=== PATIENT | female | born 1975 | race Caucasian/White ===

== ENCOUNTER → 2020-05-05 10:12 | Outpatient (CLI) | payer OTHER, SELFPAY ==
--- NOTE | ~2020-05-05 | MM_ITS ---
EXAMINATION: MM screening shin BI w mariana HISTORY: Screening TECHNIQUE: Craniocaudal and mediolateral oblique 3-D tomosynthesis images were obtained and synthetic 2-D images were generated. CAD analysis was submitted and interpreted. COMPARISON: 01/23/2018 BREAST PARENCHYMAL COMPOSITION: There are scattered areas of fibroglandular density. FINDINGS: There is focal asymmetry in the upper outer quadrant of the right breast, middle third. The left breast is stable without evidence for malignancy. IMPRESSION: 1. Focal right breast asymmetry. 2. Additional mammographic views and possible breast ultrasound are recommended. BI-RADS Category 0: Incomplete: Needs additional imaging evaluation. Reviewed, dictated and finalized at location A. IMPRESSION: 1. Focal right breast asymmetry. 2. Additional mammographic views and possible breast ultrasound are recommended . BI-RADS Category 0: Incomplete: Needs additional imaging evaluation.
== END ==
PROVIDERS: PCP Physician Assistant; Visit Provider Obstetrics & Gynecology
DX: Z12.31 Encounter for screening mammogram for malignant neoplasm of breast (principal); R92.8 Other abnormal and inconclusive findings on diagnostic imaging of breast
CPT/HCPCS: 77063; 77067

== ENCOUNTER → 2020-05-19 09:17 | Outpatient (CLI) | payer OTHER, SELFPAY ==
--- NOTE | ~2020-05-19 | MMUS_ITS ---
EXAMINATION: MM diagnostic mammo unilat RT, US breast RT limited HISTORY: Focal asymmetry reported in upper outer quadrant of right breast on 05/05/2020 screening mammo gram TECHNIQUE: Additional 3-D tomosynthesis images of the right breast were performed and synthetic 2-D i mages were generated. Rolled medial and rolled lateral craniocaudal views. CAD analysis was submitted and interpreted. High resolution upper outer and lower-outer quadrants right breast ultrasound was p erformed. COMPARISON: 05/05/2020 bilateral digital screening mammogram FINDINGS: MAMMOGRAPHIC FINDINGS: No suspicious reproducible mass or architectural distortion is evident. Occasional benign calcificati ons. No skin thickening or retraction. ULTRASOUND: At 10:00 6 cm from the nipple there is a 1.6 x 2.8 mm parallel circumscribed sonolucency, likely a si mple cyst. No suspicious mass or shadowing. IMPRESSION: 1. No mammographic evidence of malignancy 2. Routine mammographic screening is recommended. BI-RADS Category 2: Benign finding(s). Reviewed, dictated and finalized at location A. IMPRESSION: 1. No mammographic evidence of malignancy 2. Routine mammographic screening is recommended. BI-RADS Category 2: Benign finding(s).
== END ==
PROVIDERS: PCP Physician Assistant; Visit Provider Obstetrics & Gynecology
DX: R92.8 Other abnormal and inconclusive findings on diagnostic imaging of breast (principal)
CPT/HCPCS: 76642; 77065

== ENCOUNTER 2021-04-18 08:47 | Outpatient (CLI) | payer OTHER, SELFPAY ==
[2021-04-18 09:32] LABS: EDCOVIDSCREEN Negative (Negative)
== END 2021-04-18 08:48 | disposition home or self-care (01) ==
PROVIDERS: PCP Physician Assistant; Visit Provider Orthopaedic Surgery
DX: Z01.812 Encounter for preprocedural laboratory examination (principal); Z20.822 Contact with and (suspected) exposure to COVID-19
CPT/HCPCS: 87426; C9803

== ENCOUNTER 2021-04-19 04:13 | Day surgery (SDC) | payer OTHER, SELFPAY ==
[2021-04-17 13:37] VITALS: BMI 38.7
[2021-04-19] VITALS (13 sets, daily range): BP systolic 129–156; BP diastolic 71–92; PULSE 73–103; RESP 12–16; TEMP 36.2–36.9; O2SAT 98–100
--- NOTE | ~2021-04-19 | XR_ITS ---
EXAMINATION: XR surgery orthopedic DATE: 04/19/2021 11:55 INDICATION: ORIF right ankle TECHNIQUE: 4 fluoroscopic images of the right ankle were obtained during procedure performed by Dr. Ayaka king. Radiologist was not present for the imaging or procedure. The amount of fluoroscopy time used during this procedure was 0.5 minutes. COMPARISON: None. FINDINGS: Oblique fracture across the distal diaphysis of the right fibula which remains in near-anatomic align ment with one cortical width lateral displacement and minimal medial angulation. Subsequent images de monstrate a syndesmotic wire fixation with metallic buttons at the medial and lateral aspect of a riya r of lucent tunnels extending across the distal metaphyses of the tibia and fibula. No other fracture s identified. Ankle mortise appears congruent. Minimal joint space at the right ankle and visualized hindfoot. IMPRESSION: 1. Fluoroscopy utilized during distal right tibia/fibular syndesmotic wire fixation with minimally di splaced oblique fracture of the distal right fibular diaphysis. Reviewed, dictated and finalized at location A. IMPRESSION: 1. Fluoroscopy utilized during distal right tibia/fibular syndesmotic wire fixa tion with minimally displaced oblique fracture of the distal right fibular diap hysis.
--- NOTE | 2021-04-19 07:10 | WPDHPUPDATE1 ---
History and Physical Update Update Date/Time: 04/19/21 07:10 History and Physical has been reviewed, including an updated exam of the patient. There are NO changes in the patient's condition. Covid test negative. Risks, benefits, and alternatives have been discussed and questions answered. Patient agrees to proceed with procedure.
--- NOTE | 2021-04-19 08:41 | SUR.PREOP ---
patient states she is already using crutches at home and feels comfortable with them, no teaching required.
[2021-04-19] MEDS: LACTATED RINGERS 1,000 ML 30 ML IV CONT ×2 (09:15→12:11)
--- NOTE | 2021-04-19 09:21 | WPDANESEPPF ---
Anes - Initial Pre Proc Eval Procedure: Operation Date: 04/19/21 10:00 Proposed Procedures p Open Reduction Internal Fixation Right Ankle Syndesmosis, Possible Deltoid - Omega Bernal MD Date/Time: 04/19/21 09:21 Surgeon: Omega Bernal MD Pre Op Diagnosis: right ankle fx, syndesmosis injury Patient Data Age: 45 Gender: F Height: 1.63 m Weight: 103.6 kg Last Vital Signs Temp 36.9 C 04/19/21 09:07 Pulse 73 04/19/21 09:07 Resp 16 04/19/21 09:07 BP 129/80 04/19/21 09:07 Pulse Ox 98 04/19/21 09:07 Allergies Allergy/AdvReac Type Severity Reaction Status Date / Time No Known Allergies Allergy Unknown Verified 04/19/21 08:32 Home Medications Medication Instructions Recorded Confirmed Type bupropion HCl 150 mg tablet,12 hr 150 mg PO QAM 04/17/21 04/19/21 History sustained-release cetirizine 10 mg capsule 10 mg PO DAILY PRN 04/17/21 04/19/21 History hydrocodone-acetaminophen 5 - 235 tablet Q6H PRN 04/17/21 04/19/21 History ibuprofen 600 mg PO Q6H PRN 04/17/21 04/19/21 History Patient hx anesthesia problems: none Family hx anesthesia problems: none [facility] Past Medical History Medical History (Updated 04/19/21 @ 09:22 by Claus Davis MD) Ankle syndesmosis disruption Anxiety Fracture of distal end of right fibula Obesity Tear of deltoid ligament of right ankle Weight gain Surgical History Surgical History History of appendectomy Social History Social History Smoking packs per day: 0.5 Smoking cigarettes per day: 10.0 Years smoked: 10 Smoking pack-years: 5.00 Smoking status: Former smoker Smoking end date: 09/01/07 Additional smoking assessment comments: QUITE 2007 Alcohol intake: never Drinks per week: 2 Substance use: never Substance use type: does not use Living arrangements: with family Gender identity (if verbalized by the patient): Female Spiritual care concerns: No Anes - Eval Final PreProcedure Day of Procedure 04/19/21 09:21 Patient weight: obese Lungs: clear to auscultation Airway: Mallampati scale class II Neurological: alert and oriented Last oral intake: >/= 8 hours ASA classification: II Emergent: no Anesthetic plan: proceed Anesthesia type and monitoring: general LMA and standard monitoring Informed Consent: The patient's anesthetic plan and its attendant risks and benefits were discussed with the patient/family/POA. Questions were solicited and answers provided to the satisfaction of the patient/family/POA.
--- NOTE | 2021-04-19 10:04 | SUR.PREOP ---
Dr. Bernal notified that patient took norco and ibuprofen at home this morning so no tylenol or toradol was given in pre-op area.
[2021-04-19] MEDS: ceFAZolin 2 GM/D5W 50 ML 2 GM/50 ML BAG IVPB (10:29)
[2021-04-19] MEDS: BUPIVACAINE/EPINEPHRINE 0.5% 50 ML VIAL (11:04)
--- NOTE | 2021-04-19 12:24 | W.PM.PROC2 ---
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 She has a distal fibular fracture as well as syndesmosis disruption deltoid ligament disruption and ankle mortise displacement. She presents for operative stabilization. Findings Distal fibular fracture with good alignment. Syndesmosis and medial ankle instability noted on stress views. Deltoid rupture from the medial malleolus. Description of Procedure What was done: Patient identified in the preoperative holding. Informed consent given. Operative extremity marked. Patient received intravenous antibiotics. Patient brought to the operating room where underwent general anesthetic by anesthesia team. Positioned supine on operating room table. Time-out performed confirming the patient, site of the surgery and the plan. right lower extremity prepped draped usual sterile surgical fashion using ChloraPrep skin solution. Fluoroscopy brought in and stress views of the right ankle were performed. Instability the medial side of the ankle mortise and the syndesmosis was able to be demonstrated on abduction and external rotation stress. Foot and Ankle exsanguinated and a thigh tourniquet inflated to 250 mmHg. Fifteen blade knife used to make a longitudinal incision over the distal fibula lateral aspect of the ankle. Fascia incised line with skin incision. Dissection carried down lateral fibula which was cleared with a elevator. Bone holding clamp was placed with the ankle in neutral position and the syndesmosis was then reduced. Fixation achieved with a 2 hole plate with 2 Arthrex tight rope suture devices. These were drilled and verified with image intensification followed by passage of the medial but and securing laterally. Good fixation was noted. Wound thoroughly irrigated and the fascia closed with 0 Vicryl interrupted suture. Subcutaneous tissue repaired with 3-0 Monocryl interrupted and running subcuticular stitch. Skin approximated with skin glue. Medial side was then addressed. Longitudinal incision made over the medial malleolus with a 15 blade knife. Hemostasis controlled electrocautery. Fascia incised line with skin incision. Complete rupture of the deltoid ligament off of the medial malleolus was noted. The guide pin was then placed into the medial malleolus after preparing the bone with a curette. Image intensification confirmed placement of the guide pin. The suture anchor was then placed into the bone. Two of these were placed at the medial malleolus and verified with image intensification. The 2. FiberWire suture was then passed through the deltoid ligament the deltoid was repaired back to the medial malleolus. The ankle mortise had been thoroughly irrigated with solution and suctioned prior to the repair. The wound was then thoroughly irrigated. The fascia was repaired and with 0 Vicryl interrupted suture. Skin repaired with 3-0 Monocryl interrupted and running subcuticular stitches. Glue for the skin. Sterile dressing applied. The patient was then woken from anesthesia, extubated and taken to the recovery room in stable condition. All sponge, needle, instrument counts were correct at the end of the case. Implants Arthrex shown is most was tight rope x2, 2 0 fiber tack suture anchor x2 Estimated Blood Loss 5 Tourniquet Time 70 Drains No Packing No Pathology none sent Complications None Condition stable Disposition PACU
[2021-04-19] MEDS: diphenhydrAMINE HCl INJ 50 MG/ML VIAL 25 MG IV PUSH ×2 (13:14→14:35)
[2021-04-19] MEDS: oxyCODONE HCL (*CRX) 5 MG TAB IR PO (15:09)
--- NOTE | 2021-04-19 15:22 | SUR.PHASEII ---
PATIENT ASKED IF SHE SHOULD TAKE ASA 81 MG QD DISCUSS[address] WITH DR. ANGLIN AT OFFICE VISIT. DR. ANGLIN CALLED AND SAID THAT PATIENT MAY TAKE IT UNTIL FOLLOW-UP VISIT IF SHE WANTS DVT PROTECTION.
== END 2021-04-19 15:44 | disposition home or self-care (01) ==
PROVIDERS: PCP Physician Assistant; Visit Provider Orthopaedic Surgery
PROC: (CPT 27792; principal; 2021-04-19 10:00)
DX: S82.61XA Displaced fracture of lateral malleolus of right fibula, initial encounter for closed fracture (principal); S93.431A Sprain of tibiofibular ligament of right ankle, initial encounter; S93.421A Sprain of deltoid ligament of right ankle, initial encounter; E66.9 Obesity, unspecified; Z68.39 Body mass index [BMI] 39.0-39.9, adult; F41.9 Anxiety disorder, unspecified; W17.2XXA Fall into hole, initial encounter; Y93.9 Activity, unspecified; Y92.9 Unspecified place or not applicable; Y99.9 Unspecified external cause status
CPT/HCPCS: 27792; 27829; 27695; 87426; A9270; C1713; C9803; J0690; J1100; J1170; J1200; J2250; J2405; J2704; J3010; J7120

== ENCOUNTER 2021-05-08 11:15 | Outpatient (CLI) | payer OTHER, SELFPAY ==
--- NOTE | ~2021-05-08 | US_ITS ---
EXAMINATION: US venous doppler [facility] DATE: 05/08/2021 12:06 INDICATION: Right lower limb pain. TECHNIQUE: Grayscale ultrasound images without and with compression and Doppler ultrasound images of the bilateral lower extremity veins were obtained. COMPARISON: None. FINDINGS: The visualized portions of right common femoral vein, profunda (deep) femoral vein, femoral vein, pop liteal vein, posterior tibial veins, and greater saphenous vein outflow are patent. There is thrombus in right peroneal and soleus veins. The visualized portions of left common femoral vein, profunda femoral vein, femoral vein, popliteal v ein, peroneal veins, posterior tibial veins, and greater saphenous vein outflow are patent. IMPRESSION: 1. Deep vein thrombosis involving right peroneal and soleus veins. Reviewed, dictated and finalized at location A.
== END 2021-05-08 11:16 | disposition home or self-care (01) ==
PROVIDERS: PCP Physician Assistant; Visit Provider Orthopaedic Surgery
DX: I82.451 Acute embolism and thrombosis of right peroneal vein (principal); I82.461 Acute embolism and thrombosis of right calf muscular vein
CPT/HCPCS: 93970

== ENCOUNTER → 2021-06-21 10:28 | Outpatient (CLI) | payer OTHER, SELFPAY ==
--- NOTE | ~2021-06-21 | MM_ITS ---
EXAMINATION: MM screening shin BI w mariana HISTORY: Screening mammogram TECHNIQUE: Craniocaudal and mediolateral oblique 3-D tomosynthesis images were obtained and synthetic 2-D images were generated. CAD analysis was submitted and interpreted. COMPARISON: No prior mammogram is available for comparison at this institution. BREAST PARENCHYMAL COMPOSITION: 05/19/2020 diagnostic. Mammogram and limited right breast ultrasound 05/05/2020 and 01/23/2018 bilateral screening mammogram examinations FINDINGS: There is no evidence of suspicious mass, calcification, or architectural distortion to sugg est malignancy in either breast. There has been no suspicious interval change. IMPRESSION: 1. No mammographic evidence of malignancy. 2. Recommend routine screening mammography in one year. BI-RADS Category 1: Negative Reviewed, dictated and finalized at location A.
== END ==
PROVIDERS: PCP Physician Assistant; Visit Provider Obstetrics & Gynecology
DX: Z12.31 Encounter for screening mammogram for malignant neoplasm of breast (principal)
CPT/HCPCS: 77063; 77067

== ENCOUNTER 2021-07-31 10:29 | Outpatient (CLI) | payer OTHER, SELFPAY ==
--- NOTE | ~2021-07-31 | US_ITS ---
EXAMINATION:US venous doppler LE BI INDICATION:Lower extremity pain TECHNIQUE: Multiple grayscale, color flow and Doppler images of the right and left lower extremity de ep venous systems were obtained and reviewed. COMPARISON:No prior studies for comparison. FINDINGS: The common femoral, superficial femoral and popliteal veins demonstrate normal respiratory variation, augmentation and compressibility. Color flow is also seen within the posterior tibial, pe roneal, greater saphenous and profunda veins. IMPRESSION: 1: No lower extremity deep venous thrombosis. Reviewed, dictated and finalized at location B. 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
== END 2021-07-31 10:30 | disposition home or self-care (01) ==
PROVIDERS: PCP Physician Assistant; Visit Provider Orthopaedic Surgery
DX: M79.661 Pain in right lower leg (principal)
CPT/HCPCS: 93970

== ENCOUNTER → 2022-06-24 16:00 | Outpatient (CLI) | payer OTHER, SELFPAY ==
--- NOTE | ~2022-06-24 | MM_ITS ---
EXAMINATION: MM screening [facility] BI w mariana HISTORY: Screening mammogram TECHNIQUE: Craniocaudal and mediolateral oblique 3-D tomosynthesis images were obtained and synthetic 2-D images were generated. CAD analysis was submitted and interpreted. COMPARISON: 06/21/2021, 05/05/2020, 01/23/2018 BREAST PARENCHYMAL COMPOSITION: There are scattered areas of fibroglandular density. FINDINGS: No suspicious mass, calcification, or architectural distortion are identified in either kamlesh ast to suggest malignancy. There has been no suspicious interval change. IMPRESSION: 1. No mammographic evidence of malignancy. 2. Recommend routine screening mammography in one year. BI-RADS Category 1: Negative Reviewed, dictated and finalized at location A.
== END ==
PROVIDERS: PCP Physician Assistant; Visit Provider Obstetrics & Gynecology
DX: Z12.31 Encounter for screening mammogram for malignant neoplasm of breast (principal)
CPT/HCPCS: 77063; 77067

== ENCOUNTER 2023-04-10 06:16 | Day surgery (SDC) | payer OTHER, SELFPAY ==
[2023-03-20 08:07] VITALS: BMI 39.1
[2023-03-26 10:45] VITALS: BMI 39.2
--- NOTE | 2023-04-09 10:47 | WPDANESEPPF ---
Anes - Initial Pre Proc Eval Procedure: Operation Date: 04/10/23 08:00 Proposed Procedures p Esophagogastroduodenoscopy - Wayne Mckenzie MD Date/Time: 04/09/23 10:47 Surgeon: Wayne Mckenzie MD Pre Op Diagnosis: Acid Reflux, Gerd Patient Data Age: 47 Gender: F Height: 1.63 m Weight: 103.5 kg Allergies Allergy/AdvReac Type Severity Reaction Status Date / Time No Known Allergies Allergy Unknown Verified 04/10/23 06:43 Home Medications Medication Instructions Recorded Confirmed Type No Home Medications 03/26/23 04/10/23 History Patient hx anesthesia problems: none Family hx anesthesia problems: none Results Review: All pre-operative results and documents have been reviewed as part of the pre-operative evaluation. FORMERLY [facility] Past Medical History Medical History Ankle syndesmosis disruption Anxiety Deep vein thrombosis of right lower extremity Encounter for postoperative care Fracture of distal end of right fibula Obesity Tear of deltoid ligament of right ankle Weight gain Surgical History Surgical History History of appendectomy Social History Social History Smoking packs per day: 0.5 Smoking cigarettes per day: 10.0 Years smoked: 10 Smoking pack-years: 5.00 Smoking status: Never smoker Smoking end date: 09/01/07 Additional smoking assessment comments: QUIT 2007 Alcohol intake: current Drinks per week: 2 Alcohol use details: 2-3 times month Substance use: never Substance use type: does not use Living arrangements: with family Gender identity (if verbalized by the patient): Female Spiritual care concerns: No Anes - Eval Final PreProcedure Day of Procedure 04/09/23 10:47 Patient weight: obese Heart: regular rate and rhythm Lungs: clear to auscultation Airway: Mallampati scale class II Neurological: alert and oriented Last oral intake: >/= 8 hours ASA classification: II Emergent: no Anesthetic plan: proceed Anesthesia type and monitoring: general GIVS and standard monitoring Results Review: All pre-operative results and documents have been reviewed as part of the pre-operative evaluation. Informed Consent: The patient's anesthetic plan and its attendant risks and benefits were discussed with the patient/family/POA. Questions were solicited and answers provided to the satisfaction of the patient/family/POA.
[2023-04-10 06:45] VITALS: BP 144/92; PULSE 83; RESP 16; TEMP 37.1; O2SAT 100
[2023-04-10] MEDS: LACTATED RINGERS 1,000 ML 150 ML IV CONT (06:58)
--- NOTE | 2023-04-10 07:28 | PM.HPGS ---
History of Present Illness History of Present Illness Consent: Risks, benefits, and alternatives have been discussed and questions answered. Patient agrees to proceed with procedure. Chief complaint: Acid Reflux, Gerd Narrative: Maribell Issa is a 47 year old female EGD. So over the last 1 year has had episodes of coughing substernal burning and chest pain. This is not clearly related to the dietary intake. Sometimes very brief but may last for some time. She does take Tums which seems to have helped. Improved currently she tried probiotics and also apple cider vinegar. Which states seemed to help these symptoms. She brought this to the attention of primary care doctor who advised that she have an EGD. Has not tried acid nor Prilosec for fear of long-term affects. She has not tried it even short-term. Patient denies any dysphagia. She has had no bleeding. She denies a fever. She has had no specific precipitating events. Patient is today for evaluation by EGD. History noncontributory. Review of Systems Review of Systems: Systems noncontributory. FORMERLY [facility], [facility] Past Medical History Medical History Ankle syndesmosis disruption Anxiety Deep vein thrombosis of right lower extremity Encounter for postoperative care Fracture of distal end of right fibula Obesity Tear of deltoid ligament of right ankle Weight gain Surgical History Surgical History History of appendectomy Social History Social History Smoking packs per day: 0.5 Smoking cigarettes per day: 10.0 Years smoked: 10 Smoking pack-years: 5.00 Smoking status: Never smoker Smoking end date: 09/01/07 Additional smoking assessment comments: QUIT 2007 Alcohol intake: current Drinks per week: 2 Alcohol use details: 2-3 times month Substance use: never Substance use type: does not use Living arrangements: with family Gender identity (if verbalized by the patient): Female Spiritual care concerns: No Meds Home Medications and Allergies Home Medications Medication Instructions Recorded Confirmed Type No Home Medications 03/26/23 04/10/23 History Allergies Allergy/AdvReac Type Severity Reaction Status Date / Time No Known Allergies Allergy Unknown Verified 04/10/23 06:43 Vital Signs Vital Signs - 24 hr 04/10/23 06:45 Temperature 98.7 F Pulse Rate 83 Respiratory Rate 16 Blood Pressure 144/92 H Pulse Oximetry 100 Oxygen Delivery Room Air Exam Narrative: Physical exam reveals patient to be alert. Signs stable. HEENT exam is unremarkable. Patient is anicteric. Lungs are clear to auscultation and percussion. Heart is without murmur or extra sounds. Abdomen bowel sounds are present soft nontender with no hepatosplenomegaly. Assessment and Plan Assessment and plan (1) Heartburn: Code(s): R12 - Heartburn Status: Acute Assessment and Plan: patient with episodes of substernal burning along with coughing and chest discomfort. This is strongly suspicious for underlying acid reflux disease. Symptoms do improve with Tums. Patient is somewhat trying prescription medications. EGD start will be performed. A coulee would benefit from a trial of Prilosec bland diet is advised. Elevate head of bed at night. No late snacks are strongly encouraged.
[2023-04-10 08:17] VITALS: BP 124/78; PULSE 82; RESP 16; O2SAT 96
[2023-04-10 08:27] VITALS: BP 130/84; PULSE 76; RESP 16; O2SAT 99
[2023-04-10 08:37] VITALS: BP 127/81; PULSE 78; RESP 16; O2SAT 99
--- NOTE | 2023-04-10 12:34 | WPDANESPN ---
Anes - Prog Note Post-Op Date/Time: 04/10/23 12:34 Cardiovascular status: normal Respiratory status: normal Airway patency: baseline Mental status: baseline Post-Op hydration status: normal Vital Signs: Last Vital Signs Temp 37.1 C 04/10/23 06:45 Pulse 78 04/10/23 08:37 Resp 16 04/10/23 08:37 BP 127/81 04/10/23 08:37 Pulse Ox 99 04/10/23 08:37 O2 Del Method Room Air 04/10/23 08:37 Pain Score (VAS): 0 I/O: Intake & Output 04/09/23 04/10/23 04/10/23 23:59 07:59 15:59 Intake Total 600 Balance 600 Post-procedural complaints: none Patient Feedback: Patient satisfied with anesthetic care. Other Findings: Patient vital signs back to baseline. Patient denies nausea and vomiting. Patient's pain under control. Patient OK for discharge.
== END 2023-04-10 09:05 | disposition home or self-care (01) ==
PROVIDERS: PCP Physician Assistant; Visit Provider Internal Medicine Gastroenterology
PROC: 0DJ08ZZ Inspection of Upper Intestinal Tract, Via Natural or Artificial Opening Endoscopic (ICD-10-PCS; CPT 43235; principal; 2023-04-10 08:00)
DX: R12 Heartburn (principal); K21.9 Gastro-esophageal reflux disease without esophagitis; Q39.4 Esophageal web
CPT/HCPCS: 43450

== ENCOUNTER → 2023-06-26 16:18 | Outpatient (CLI) | payer OTHER, SELFPAY ==
--- NOTE | ~2023-06-26 | MM_ITS ---
EXAMINATION: MM screening shin BI w mariana HISTORY: Screening mammogram TECHNIQUE: Craniocaudal and mediolateral oblique 3-D tomosynthesis images were obtained and synthetic 2-D images were generated. CAD analysis was submitted and interpreted. COMPARISON: 06/20/2022, 06/21/2021 bilateral screening mammogram examinations BREAST PARENCHYMAL COMPOSITION: There are scattered areas of fibroglandular density. FINDINGS: There is no evidence of suspicious mass, calcification, or architectural distortion to sugg est malignancy in either breast. There has been no suspicious interval change. IMPRESSION: 1. No mammographic evidence of malignancy. 2. Recommend routine screening mammography in one year. BI-RADS Category 1: Negative Reviewed, dictated and finalized at location A.
== END ==
PROVIDERS: PCP Physician Assistant; Visit Provider Obstetrics & Gynecology
DX: Z12.31 Encounter for screening mammogram for malignant neoplasm of breast (principal)
CPT/HCPCS: 77063; 77067

== ENCOUNTER 2024-11-26 11:16 | Outpatient (CLI) | payer OTHER, SELFPAY ==
--- NOTE | ~2024-11-26 | MM_ITS ---
EXAMINATION: MM screening [facility] BI w mariana HISTORY: Screening TECHNIQUE: Craniocaudal and mediolateral oblique 3-D tomosynthesis images were obtained and synthetic 2-D images were generated. CAD analysis was submitted and interpreted. COMPARISON: 06/26/2023 and dating back to 05/19/2020 BREAST PARENCHYMAL COMPOSITION: There are scattered areas of fibroglandular density. FINDINGS: Punctate calcifications are detected bilaterally, stable and benign in appearance. Stable parenchymal pattern without suspicious microcalcifications, architectural distortion, discrete masses or significant asymmetry. IMPRESSION: 1. No mammographic evidence of malignancy. 2. Recommend routine screening mammography in one year. BI-RADS Category 2: Benign finding(s). Reviewed, dictated and finalized at location A.
== END 2024-11-26 11:17 | disposition home or self-care (01) ==
LOC: MICIMG 11:16
PROVIDERS: PCP Physician Assistant; Visit Provider Obstetrics & Gynecology
DX: Z12.31 Encounter for screening mammogram for malignant neoplasm of breast (principal)
CPT/HCPCS: 77063; 77067